=== PATIENT | male | born 1955 | race Caucasian/White ===

== ENCOUNTER 2019-05-28 07:18 | Outpatient (CLI) | payer OTHER, SELFPAY ==
[2019-05-28 08:25] LABS: Alanine Aminotransferase 41 U/L (4-50); Albumin Level 4.2 g/dL (3.5-5.1); Alkaline Phosphatase 140 U/L (38-126); Aspartate Amino Transferase 34 U/L (17-59); Bilirubin,Total 0.7 mg/dL (0.2-1.3); Blood Urea Nitrogen 37 mg/dL (9-20); Calcium 9.1 mg/dL (8.4-10.2); Carbon Dioxide 37 mmol/L (22-30); Chloride 92 mmol/L (98-107); Cholesterol 154 mg/dL (0-200); Estimated Glomerular Filt Rate 38; Glucose 105 mg/dL (75-110); HDL Direct 25 mg/dL; Potassium 3.7 mmol/L (3.4-5.0); Sodium 140 mmol/L (137-145); Triglycerides 401 mg/dL (<150)
[2019-05-28 08:26] LABS: Hemoglobin A1C 7.7 % (<5.7)
[2019-05-28 08:36] LABS: LDL Cholesterol Direct 52 mg/dL
[2019-05-28 08:37] LABS: Iron 160 ug/dL (49-181)
[2019-05-28 08:48] LABS: Percent Iron Saturation 53 % (20-50)
[2019-05-28 08:51] LABS: Prostate Specific Antigen 0.6 ng/mL (< OR = 4.0)
== END 2019-05-28 07:19 | disposition home or self-care (01) ==
PROVIDERS: PCP Internal Medicine; Visit Provider Nurse Practitioner
DX: E11.9 Type 2 diabetes mellitus without complications (principal); D50.9 Iron deficiency anemia, unspecified; Z12.5 Encounter for screening for malignant neoplasm of prostate; E78.5 Hyperlipidemia, unspecified
CPT/HCPCS: 36415; 80053; 80061; 83036; 83540; 83550; 84153; G0103

== ENCOUNTER 2019-08-01 13:40 | Outpatient (CLI) | payer OTHER, SELFPAY ==
--- NOTE | ~2019-08-01 | US_ITS ---
US renal BI 08/01/2019 15:01 Procedure: Realtime transabdominal ultrasound of the kidneys and bladder. Indication: Chronic kidney disease stage III Comparison: Ultrasound dated 01/04/2018 Findings: Renal echotexture is increased bilaterally with decreased cortical medullary differentiatio n. There is a right renal cyst measuring 2.4 cm. No hydronephrosis, solid mass or renal stone. The ri ght kidney measures 9.5 cm and left kidney measures 10.2 cm. Bladder within normal limits. Impression: 1: Increased bilateral renal cortical echotexture, consistent with chronic medical renal disease. 2: 2.4 cm right renal cyst. Reviewed, dictated and finalized at location A. Impression: 1: Increased bilateral renal cortical echotexture, consistent with chronic medi claudio renal disease. 2: 2.4 cm right renal cyst.
[2019-08-01 14:38] LABS: Hematocrit 50.1 % (42.0-52.0); Hemoglobin 16.4 g/dL (14.0-18.0); Mean Corpuscular HGB Conc 32.7 g/dl (32-36); Mean Corpuscular Hemoglobin 32.1 pg (26-34); Mean Platelet Volume 10.4 fl (7.4-10.4); Platelet Count Result 203 k/mm3 (150-375); Red Blood Count 5.11 M/mm3 (4.6-6.20); Red Cell Distribution Width 12.7 % (11.5-14.5); White Blood Count 10.6 K/mm3 (4.5-10.0)
[2019-08-01 14:49] LABS: Albumin Level 4.5 g/dL (3.5-5.1); Blood Urea Nitrogen 32 mg/dL (9-20); Calcium 9.6 mg/dL (8.4-10.2); Carbon Dioxide 37 mmol/L (22-30); Chloride 97 mmol/L (98-107); Estimated Glomerular Filt Rate 51; Glucose 182 mg/dL (75-110); Phosphorus 3.1 mg/dL (2.5-4.5); Sodium 138 mmol/L (137-145)
[2019-08-01 15:00] LABS: Complement C3 135 mg/dL (88-165)
[2019-08-01 15:01] LABS: Parathyroid Intact 105.2 pg/mL (7.5-53.5)
[2019-08-01 15:04] LABS: Erythrocyte Sedimentation Rate 15 mm/hr (0-20)
[2019-08-01 15:16] LABS: Add Urine Microscopic? YES; Appearance Urine Clear (Clear); Bilirubin Urine Negative (Negative); Blood Urine Negative (Negative); Color Urine Straw (Yellow); Glucose Urine UA 3+ mg/dL (Negative); Ketones Urine Negative (Negative); Leukocyte Esterase Ur Negative LEU/UL (NEGATIVE); Nitrate Urine Negative (Negative); Protein Urine Negative (Negative); RBC Urine 0-2 /hpf (0-2); Urobilinogen Urine Negative mg/dL (<2.0)
[2019-08-01 15:22] LABS: Creatinine Urine 22.4 mg/dL; Total Protein Urine Random 12 mg/dL
[2019-08-01 16:16] LABS: Total Volume 24 Hour Urine 2700 ml; Urea Nitrogen 24 Hour Urine 9.6 G/DAY (12-20)
[2019-08-04 20:03] LABS: Complement Total CH50 >60 U/mL (31-60)
[2019-08-05 03:53] LABS: Kappa\\Lambda Light Chains 1.27 (0.26-1.65); Lambda Light Chain 36.6 mg/L (5.7-26.3)
== END 2019-08-01 13:41 | disposition home or self-care (01) ==
PROVIDERS: PCP Internal Medicine; Visit Provider Internal Medicine Nephrology
DX: N18.3 Chronic kidney disease, stage 3 (moderate) (principal); N28.1 Cyst of kidney, acquired
CPT/HCPCS: 36415; 76775; 80069; 81001; 81050; 82570; 83883; 83970; 84156; 84540; 85027; 85652; 86038; 86160; 86162; 86334; 86335

== ENCOUNTER 2019-10-26 09:37 | Outpatient (CLI) | payer OTHER, SELFPAY ==
[2019-10-26 10:23] LABS: Anion Gap 9.7 mmol/L (7-16); Blood Urea Nitrogen 27 mg/dL (9-20); Calcium 8.8 mg/dL (8.4-10.2); Carbon Dioxide 33 mmol/L (22-30); Chloride 98 mmol/L (98-107); Estimated Glomerular Filt Rate 47; Glucose 213 mg/dL (75-110); Phosphorus 3.2 mg/dL (2.5-4.5); Potassium 3.7 mmol/L (3.4-5.0); Sodium 137 mmol/L (137-145)
== END 2019-10-26 09:38 | disposition home or self-care (01) ==
PROVIDERS: PCP Internal Medicine; Visit Provider Internal Medicine Nephrology
DX: N18.3 Chronic kidney disease, stage 3 (moderate) (principal)
CPT/HCPCS: 36415; 80069

== ENCOUNTER 2020-02-05 09:36 | Outpatient (CLI) | payer OTHER, SELFPAY ==
[2020-02-05 10:24] LABS: Hematocrit 43.8 % (42.0-52.0); Hemoglobin 14.6 g/dL (14.0-18.0); Mean Corpuscular HGB Conc 33.3 g/dl (32-36); Mean Corpuscular Hemoglobin 32.1 pg (26-34); Mean Corpuscular Volume 96.3 fl (80-100); Mean Platelet Volume 10.3 fl (7.4-10.4); Platelet Count Result 193 k/mm3 (150-375); Red Blood Count 4.55 M/mm3 (4.6-6.20); White Blood Count 10.2 K/mm3 (4.5-10.0)
[2020-02-05 10:33] LABS: Total Protein Urine Random 9 mg/dL
[2020-02-05 10:51] LABS: Parathyroid Intact 104.2 pg/mL (7.5-53.5)
[2020-02-05 10:55] LABS: Albumin Level 3.9 g/dL (3.5-5.1); Anion Gap 2.99999 mmol/L (8-16); Blood Urea Nitrogen 23 mg/dL (9-20); Carbon Dioxide > 40 mmol/L (22-30); Chloride 96 mmol/L (98-107); Estimated Glomerular Filt Rate 56; Glucose 160 mg/dL (75-110); Phosphorus 2.9 mg/dL (2.5-4.5); Potassium 3.9 mmol/L (3.4-5.0); Sodium 139 mmol/L (137-145)
[2020-02-05 11:24] LABS: Vitamin D 25 Hydroxy 30.4 ng/mL
== END 2020-02-05 09:37 | disposition home or self-care (01) ==
LOC: ANHLAB 09:40
PROVIDERS: PCP Internal Medicine; Visit Provider Internal Medicine Nephrology
DX: N18.30 Chronic kidney disease, stage 3 unspecified (principal)
CPT/HCPCS: 36415; 80069; 81050; 82306; 83970; 84156; 85027

== ENCOUNTER 2020-04-21 09:47 | Outpatient (CLI) | payer OTHER, SELFPAY ==
[2020-04-21 10:32] LABS: Alanine Aminotransferase 21 U/L (4-50); Albumin Level 3.9 g/dL (3.5-5.1); Alkaline Phosphatase 124 U/L (38-126); Anion Gap 5 mmol/L (8-16); Aspartate Amino Transferase 24 U/L (17-59); Bilirubin,Total 0.8 mg/dL (0.2-1.3); Blood Urea Nitrogen 32 mg/dL (9-20); Carbon Dioxide 37 mmol/L (22-30); Chloride 96 mmol/L (98-107); Cholesterol 153 mg/dL (0-200); Estimated Glomerular Filt Rate 41; Glucose 187 mg/dL (75-110); HDL Direct 23 mg/dL; Potassium 4.3 mmol/L (3.4-5.0); Sodium 138 mmol/L (137-145); Triglycerides 399 mg/dL (<150)
[2020-04-21 10:43] LABS: LDL Cholesterol Direct 42 mg/dL
[2020-04-21 10:50] LABS: Iron 123 ug/dL (49-181)
[2020-04-21 10:54] LABS: Creatinine Urine 258.9 mg/dL
[2020-04-21 11:00] LABS: Percent Iron Saturation 40 % (20-50)
[2020-04-21 11:13] LABS: MALB Creatinine Ratio 89.1 mg/g (0-30); Microalbumin Urine Random 230.8 mg/L (0-16.7)
[2020-04-21 11:23] LABS: Hemoglobin A1C 8.8 % (<5.7)
== END 2020-04-21 09:48 | disposition home or self-care (01) ==
PROVIDERS: PCP Internal Medicine; Visit Provider Nurse Practitioner
DX: E78.5 Hyperlipidemia, unspecified (principal); D50.9 Iron deficiency anemia, unspecified; E11.9 Type 2 diabetes mellitus without complications
CPT/HCPCS: 36415; 80053; 80061; 82043; 83036; 83540; 83550